=== PATIENT | male | born 1980 | race Caucasian/White ===

== ENCOUNTER 2017-04-02 14:18 | Emergency (ER) | payer SELFPAY ==
[~2017-04-02] VITALS: Ht 177.8 cm; Wt 75.0 kg
[2017-04-02] MEDS ORDERED: HYDROCODONE/ACETAMINOPHEN 5/325MG TABLET PO ONE (15:00)
[2017-04-02] MEDS ORDERED: KETOROLAC 60MG/2ML VIAL IM ONE (15:00)
[2017-04-02 17:00] VITALS: BP 130/79
== END 2017-04-02 17:44 | disposition home or self-care (01) ==
LOC: ER 14:57
DX: S39.012A Strain of muscle, fascia and tendon of lower back, initial encounter (principal); M54.30 Sciatica, unspecified side; X50.0XXA Overexertion from strenuous movement or load, initial encounter; Y93.89 Activity, other specified; Y92.89 Other specified places as the place of occurrence of the external cause; Y99.8 Other external cause status
CPT/HCPCS: 72100; 96372; 99284; J1885; Z7610